=== PATIENT | female | born 1970 | race Caucasian/White ===

== ENCOUNTER 2019-09-20 20:48 | Emergency (ER) | payer OTHER ==
[2019-09-20 21:02] VITALS: BP 124/68; PULSE 87; TEMP 98.2; BMI 33.4
[2019-09-20] MEDS ORDERED: FAMOTIDINE 20 MG/50 ML IVPB 20 MG/50 ML MG IVPB ONE ×2 (21:34→21:59)
[2019-09-20] MEDS ORDERED: SODIUM CHLORIDE 1,000 ML IV STA (21:34)
--- NOTE | 2019-09-20 21:34 | PDOC ---
Rapid Medical Evaluation Chief Complaint: Nausea/Vomiting Medical Evaluation: Allergies Allergy/AdvReac Type Severity Reaction Status Date / Time No Known Allergies Allergy Verified 09/20/19 21:02 Vital Signs Temp Pulse Resp BP Pulse Ox 98.2 F 87 18 124/68 98 09/20/19 20:58 09/20/19 20:58 09/20/19 20:58 09/20/19 20:58 09/20/19 20:58 09/20/19 21:32 Pt is a 49-year-old female with 5 episodes of vomiting and 6 episodes of diarrhea today. She has left-sided abdominal pain. She continues to have nausea. She denies any blood in her vomitus or stool. Brief exam: S1S2, lungs clear, Left sided abdominal tenderness to palpation Orders: labs and CTAP Pt to go to the main ED for further evaluation. Discharge Disposition - Diagnosis Abdominal pain Qualifiers: Abdominal location: left lower quadrant Qualified Code(s): R10.32 - Left lower quadrant pain - Referrals Referrals: Arnie Ibarra MD [Primary Care Provider] - - Patient Instructions - Post Discharge Activity
[2019-09-20] MEDS ORDERED: ONDANSETRON 4 MG/2 ML VIAL IVPUSH ONE (21:35)
[2019-09-20] MEDS ORDERED: ONDANSETRON 4 MG/2 ML VIAL ONE (21:59)
[2019-09-20 22:35] LABS: BASO % 0.3 % (0-2.0); HEMATOCRIT 41.7 % (32.4-45.2); HEMOGLOBIN 13.7 GM/dL (10.7-15.3); LYMPH % 7.4 % (8-40); MCH 28.6 pg (25.7-33.7); MCHC 32.8 g/dl (32.0-36.0); MEAN PLT VOLUME 10.2 fl (7.5-11.1); MONO % 4.2 % (3.8-10.2); NEUT % 88.1 % (42.8-82.8); PLATELET COUNT 251 K/MM3 (134-434); RBC 4.79 M/mm3 (3.60-5.2); RDW 15.6 % (11.6-15.6)
--- NOTE | 2019-09-20 22:35 | PDOC ---
History of Present Illness - General Chief Complaint: Nausea/Vomiting Stated Complaint: VOMITING History Source: Patient Exam Limitations: No Limitations - History of Present Illness Initial Comments: 09/20/19 22:28 Patient is a 49-year-old female with history of arthritis here with complaints of abdominal pain mostly on the left side, nausea vomiting and diarrhea. Patient states her symptoms started today and has had several episodes of vomiting. Describes her pain as a crampy type mostly on the left side, which is intermittent, at the maximum 10/10. She denies any fever, chills, dysuria. No prior episode of this type of pain. Has never had a colonoscopy. PMD: Dr. Sanchez PMHX: As above PSOCHX: neg etoh, drug, cig ALL: NKDA GENERAL/CONSTITUTIONAL: [No fever or chills. No weakness. No weight change.] HEAD, EYES, EARS, NOSE AND THROAT: [No change in vision. No ear pain or discharge. No sore throat.] CARDIOVASCULAR: [No chest pain or shortness of breath.] RESPIRATORY: [No cough, wheezing, or hemoptysis.] GASTROINTESTINAL: [(+) nausea, vomiting, diarrhea (-) constipation. No rectal bleeding.] GENITOURINARY: [No dysuria, frequency, or change in urination.] MUSCULOSKELETAL: [No joint or muscle swelling or pain. No neck or back pain.] SKIN AND BREASTS: [No rash or easy bruising.] NEUROLOGIC: [No headache, vertigo, loss of consciousness, or loss of sensation.] PSYCHIATRIC: [No depression or anxiety.] ENDOCRINE: [No increased thirst. No abnormal weight change.] HEMATOLOGIC/LYMPHATIC: [No anemia, easy bleeding, or history of blood clots.] ALLERGIC/IMMUNOLOGIC: [No hives or skin allergy. No latex allergy.] GENERAL: [The patient is awake, alert, and fully oriented, in mild distress.] HEAD: [Normal with no signs of trauma.] EYES: [Pupils equal, round and reactive to light, extraocular movements intact, sclera anicteric, conjunctiva clear.] ENT: [Ears normal, nares patent, oropharynx clear without exudates. Moist mucous membranes.] NECK: [Normal range of motion, supple without lymphadenopathy, JVD, or masses.] LUNGS: [Breath sounds equal, clear to auscultation bilaterally. No wheezes, and no crackles.] HEART: [Regular rate and rhythm, normal S1 and S2 without murmur, rub.] ABDOMEN: [Soft, (+) tenderness left LLQ, normoactive bowel sounds. No guarding , no rebound. No masses.] EXTREMITIES: [Normal range of motion, no edema. No clubbing or cyanosis. No cords, erythema, or tenderness.] NEUROLOGICAL: [Cranial nerves II through XII grossly intact. Normal speech, normal gait.] PSYCH: [Normal mood, normal affect.] SKIN: [Warm, Dry, normal turgor, no rashes or lesions noted.] Past History - Past Medical History Allergies/Adverse Reactions: Allergies Allergy/AdvReac Type Severity Reaction Status Date / Time No Known Allergies Allergy Verified 09/20/19 21:02 - Psycho Social/Smoking Cessation Hx Smoking History: Never smoked Hx Alcohol Use: No Drug/Substance Use Hx: No *Physical Exam - Vital Signs Last Vital Signs Temp Pulse Resp BP Pulse Ox 98.2 F 87 18 124/68 98 09/20/19 20:58 09/20/19 20:58 09/20/19 20:58 09/20/19 20:58 09/20/19 20:58 ED Treatment Course - LABORATORY CBC & Chemistry Diagram: 09/20/19 22:20 09/20/19 22:20 - Medications Given in the ED: ED Medications Discontinued Medications Generic Name Dose Route Start Last Admin Trade Name Freq PRN Reason Stop Dose Admin Famotidine/Sodium Chloride 20 mg in 50 mls @ 100 mls/hr 09/20/19 21:34 22:26 Pepcid 20 Mg Premixed Ivpb - IVPB 09/20/19 22:03 100 mls/hr ONCE ONE Administration Ondansetron HCl 4 mg 09/20/19 21:35 09/20/19 22:26 Zofran Injection IVPUSH 09/20/19 21:36 4 mg ONCE ONE Administration Medical Decision Making - Medical Decision Making 09/20/19 22:28 Patient is a 49-year-old female with history of arthritis here with complaints of abdominal pain mostly on the left side, nausea vomiting and diarrhea. Patient states her symptoms started today and has had several episodes of vomiting. Describes her pain as a crampy type mostly on the left side, which is intermittent, at the maximum 10/10. She denies any fever, chills, dysuria. No prior episode of this type of pain. Has never had a colonoscopy. DDX: renal colic, diverticulitis, Patient declines pain meds currently labs, CT A/P reassess Patient requesting something for pain will give Toradol 30 mg IV. 09/21/19 00:43 Patient Full Name: JESSICA JARQUIN Patient Accession No: [id number] Patient : 1970 Reason for Exam: LLQ PAIN Referring Physician: VAIBHAV PAN Patient Name: BRITTON LOPEZ THIS IS A PRELIMINARY REPORT FROM [facility] DATE OF SERVICE: 2019-09-20 23:10:14 IMAGES: [id number] EXAM: ABDOMEN \T\ PELVIS CT WITH CONTR HISTORY: Left lower quadrant pain. COMPARISON: None. FINDINGS: Calcified nodule in the right lung base. Dependent atelectasis. Heart normal in size pericardial effusion. The liver, spleen, pancreas, adrenal glands, and kidneys are without acute abnormality. Urinary bladder minimally distended, limiting evaluation. Pelvic reproductive organs unremarkable. No free fluid in the pelvis. Seen just left of the rectum is a round fluid density lesion measuring 2.4 x 2.6 cm, closely approximating the left sacrum. No evidence for small bowel obstruction or perforation. Loop of small bowel seen the left lower quadrant which demonstrates mild ill-defined wall and adjacent inflammatory change in the subcutaneous fat, seen on image 55 series [id number] and image 89 series 3. Hyperdense material seen within the distal small bowel intraluminally may represent enteric contents.Terminal ileum and appendix normal. No significant inflammatory changes of the colon. Vascular structures within normal limits. No acute osseous abnormalities. IMPRESSION: 1. Mildly inflamed loop of nondilated small bowel in the left lower quadrant which may represent enteritis. 2. Cystic lesion seen in the left pelvis, closely approximating the sacrum. Findings are nonspecific, though may represent a large perineural cyst. Further evaluation with routine MRI of the lumbar spine and sacrum recommended. One or more of the following dose reduction techniques were used: automated exposure control, adjustment of the mA and/or kV according to patient size, use of iterative reconstructive technique. THIS DOCUMENT HAS BEEN ELECTRONICALLY SIGNED Mary Beth Rice MD 09/21/2019 00:25 RICKY Reyes. Please call [facility] [employer] Technician [phone] ([phone]) with questions. INTERPRETING RADIOLOGIST: Mary Beth Rice MD Electronically Signed: Sep 21, 2019 12:27AM EST I discussed the physical exam findings, ancillary test results and final diagnoses with the patient. I answered all of the patient's questions. The patient was satisfied with the care received and felt comfortable with the discharge plan and treatment plan. The Patient agrees to follow up with the primary care physician within 24-72 hours. Will instruct to follow-up with GI Discharge - Discharge Information Problems reviewed: Yes Clinical Impression/Diagnosis: Enteritis Abdominal pain Qualifiers: Abdominal location: left lower quadrant Qualified Code(s): R10.32 - Left lower quadrant pain Condition: Stable Disposition: HOME - Follow up/Referral Referrals: Arnie Ibarra MD [Primary Care Provider] - Agnes Bowser DO [Staff Physician] - - Patient Discharge Instructions Patient Printed Discharge Instructions: DI for Abdominal Pain-Adult, DI for Enteritis Additional Instructions: Your Discharge Instructions: You must call primary care physician within 24 hours to arrange follow-up. Return to the Emergency Department with any new, persistent or worsening symptoms, for fever, chills, SOB, dizziness or any other concerning changes that may occur. Continue Tylenol and Motrin for pain. You must follow-up with gastroenterology, call for an appointment. Suggest you follow a brat diet for the next few days, (bread, rice, toast, applesauce). Avoid dairy products, caffeine, alcohol, nicotine and fatty or highly seasoned food for the next few days. - Post Discharge Activity
[2019-09-20 22:38] LABS: URINE APPEARANCE CLOUDY; URINE BILIRUBIN NEGATIVE (NEGATIVE); URINE COLOR YELLOW; URINE GLUCOSE (UA) NEGATIVE (NEGATIVE); URINE KETONE 1+ (NEGATIVE); URINE LEUK ESTERASE NEGATIVE (NEGATIVE); URINE NITRITE NEGATIVE (NEGATIVE); URINE PROTEIN TRACE (NEGATIVE); URINE UROBILINOGEN 0.2 mg/dL (0.2-1.0)
[2019-09-20 23:02] LABS: ALBUMIN 3.9 g/dl (3.4-5.0); BLOOD UREA NITROGEN 20.8 mg/dL (7-18); CALCIUM 8.4 mg/dL (8.5-10.1); CREATININE 0.6 mg/dL (0.55-1.3); TOT PROT 7.4 g/dl (6.4-8.2)
[2019-09-20] MEDS ORDERED: KETOROLAC TROMETHAMINE 30 MG/1 ML VIAL IVPUSH ONE (23:37)
[2019-09-20] MEDS ORDERED: KETOROLAC TROMETHAMINE 30 MG/1 ML VIAL ONE (23:51)
== END 2019-09-21 01:14 | disposition home or self-care (01) ==
LOC: JER 20:48 → JERFT 20:48 → JER 09-21 01:14
PROC: 3E033GC Introduction of Other Therapeutic Substance into Peripheral Vein, Percutaneous Approach (ICD-10-PCS; principal; 2019-09-20)
PROC: 3E033GC Introduction of Other Therapeutic Substance into Peripheral Vein, Percutaneous Approach (ICD-10-PCS; 2019-09-20)
PROC: 3E0333Z Introduction of Anti-inflammatory into Peripheral Vein, Percutaneous Approach (ICD-10-PCS; 2019-09-20)
DX: K52.9 Noninfective gastroenteritis and colitis, unspecified (principal); M12.9 Arthropathy, unspecified
CPT/HCPCS: 36415; 74177-TC; 80053; 81003; 83690; 84703; 85025; 87086; 96365; 96375; 99285-25; J7030; Q9967

== ENCOUNTER 2019-09-26 10:35 | Emergency (ER) | payer OTHER ==
[2019-09-26 10:45] VITALS: BP 127/74; PULSE 78; BMI 31.3
[2019-09-26] MEDS ORDERED: FAMOTIDINE 20 MG TABLET ONE (11:00)
[2019-09-26] MEDS ORDERED: DEXAMETHASONE SOD PHOSPHATE 10 MG/1 ML VIAL ONE (11:00)
[2019-09-26] MEDS ORDERED: diphenhydrAMINE HCL 25 MG CAPSULE (FP) PO ONE (11:01)
[2019-09-26] MEDS ORDERED: diphenhydrAMINE HCL 50 MG CAPSULE PO ONE (11:02)
[2019-09-26] MEDS ORDERED: FAMOTIDINE 20 MG TABLET PO ONE (11:02)
[2019-09-26] MEDS ORDERED: DEXAMETHASONE LIQUID 0.5 MG/5 ML PO ONE (11:02)
--- NOTE | 2019-09-26 11:07 | PDOC ---
History of Present Illness - General Chief Complaint: Allergic Reaction Stated Complaint: ALLERGIC REACTION Time Seen by Provider: 09/26/19 10:47 History Source: Patient Exam Limitations: No Limitations Past History - Travel Traveled outside of the country in the last 30 days: No Close contact w/someone who was outside of country & ill: No - Past Medical History Allergies/Adverse Reactions: Allergies Allergy/AdvReac Type Severity Reaction Status Date / Time No Known Allergies Allergy Verified 09/26/19 10:40 Home Medications: Ambulatory Orders Diphenhydramine HCl [Benadryl -] 25 mg PO Q8H #21 capsule 09/26/19 Famotidine [Pepcid -] 20 mg PO BID #14 tablet 09/26/19 Methylprednisolone [Medrol -] 4 mg PO ASDIR #21 tablet 09/26/19 - Psycho Social/Smoking Cessation Hx Smoking History: Never smoked Hx Alcohol Use: No Drug/Substance Use Hx: No Review of Systems - Review of Systems Able to Perform ROS?: Yes Comments:: 09/26/19 11:01 CONSTITUTIONAL: Absent: fever, chills, diaphoresis, generalized weakness, malaise, loss of appetite HEENT: Absent: rhinorrhea, nasal congestion, throat pain, throat swelling, difficulty swallowing, mouth swelling, ear pain, eye pain, visual Changes RESPIRATORY: Absent: cough, shortness of breath, dyspnea with exertion, orthopnea, wheezing, stridor, hemoptysis GASTROINTESTINAL: Absent: abdominal pain, abdominal distension, nausea, vomiting, diarrhea, constipation, melena, hematochezia MUSCULOSKELETAL: Absent: myalgia, arthralgia, joint swelling SKIN: Present: rash Absent: itching, pallor NEUROLOGIC: Absent: headache, focal weakness or paresthesias, dizziness, unsteady gait, seizure, mental status changes, bladder or bowel incontinence PSYCHIATRIC: Absent: anxiety, depression, suicidal or homicidal ideation, hallucinations. Is the patient limited Georgian proficient: No *Physical Exam - Vital Signs Last Vital Signs Temp Pulse Resp BP Pulse Ox 78 16 127/74 100 09/26/19 10:41 09/26/19 10:41 09/26/19 10:41 09/26/19 10:41 - Physical Exam 09/26/19 11:01 GENERAL: The patient is awake, alert, and fully oriented, in no acute distress. HEAD: Normal with no signs of trauma. EYES: Pupils equal, round and reactive to light, extraocular movements intact, sclera anicteric, conjunctiva clear. EXTREMITIES: Normal range of motion, no edema. NEUROLOGICAL: Normal speech, normal gait. PSYCH: Normal mood, normal affect. SKIN: Pruritic, erythematous blanching rash with wheals to the face,, bilateral arms, back, chest and abdomen. Warm, Dry, normal turgor, no lesions noted. Medical Decision Making - Medical Decision Making 09/26/19 11:04 The patient is a 49 y/o F with no PMH presents to the ER with a rash to her face , chest, arms and abdomen. She states the rash started at 3 AM. She notices that she was itchy before going to bed last night. She does not have any allergies that she knows of. Denies fevers, chills, difficulty breathing, shortness of breath, nausea and vomiting. A/P: Hives On exam patient with a pruritic, erythematous and blanching wheal-like rash to the face, chest, arms and abdomen. Lungs are clear to auscultation bilateral without wheezes rales or rhonchi. There is no edema to the posterior pharynx. Consistent with an allergic reaction We will treat with steroids, Benadryl and Pepcid in the ER. Prescription sent to patient pharmacy for all 3. Will refer to allergy. Discharge home I discussed the physical exam findings, ancillary test results and final diagnoses with the patient. I answered all of the patient's questions. The patient was satisfied with the care received and felt comfortable with the discharge plan and treatment plan. The Patient agrees to follow up with the primary care physician/specialist within 24-72 hours. Return precautions were given. Discharge - Discharge Information Problems reviewed: Yes Clinical Impression/Diagnosis: Allergic reaction Qualifiers: Encounter type: initial encounter Qualified Code(s): T78.40XA - Allergy, unspecified, initial encounter Condition: Stable Disposition: HOME - Admission No - Follow up/Referral Referrals: Arnie Ibarra MD [Primary Care Provider] - - Patient Discharge Instructions Patient Printed Discharge Instructions: DI for Adverse Drug Reaction -- Allergic Additional Instructions: You were evaluated for your rash today. It is most likely an allergy. Please start taking the steroids, Medrol Dosepak, tomorrow. You received your first dose in the ER today. Please take the Benadryl every 8 hours to help with the rash. You may take the Pepcid twice a day also to help with the rash. You may use cool showers to help with the itching and chamomile lotion. Please follow-up with allergy. A referral has been given to you. Follow-up in 1 week. Return to the ER for difficulty breathing, shortness of breath, wheezing, swelling in your throat, or if you have any changes in your symptoms. Te evaluaron para tu sarpullido magaliey. Lo ms probable es que sea anabela alergia. Por favor empezar a tano los esteroides, Medrol Dosepak, maana. Hoy recibi montesinos primera dosis en Urgencias. Por favor, tome el Benadryl cada 8 horas para ayudar con la erupcin cutnea. Usted puede tano el Pepcid dos veces al da tambin para ayudar con la erupcin cutnea. Usted puede usar duchas frescas para ayudar con la picazn y la locin de manzanilla. Por favor, garo un seguimiento de la alergia. Se le gottlieb dado anabela referencia. Seguimiento en 1 semana. Regrese a la urgencia para dificultad para respirar, dificultad para respirar, sibilancias, hinchazn en la garganta o si tiene algn cambio en los sntomas. - Post Discharge Activity Work/Back to School Note: Back to Work
== END 2019-09-26 11:15 | disposition home or self-care (01) ==
LOC: JERFT 10:35
DX: L50.0 Allergic urticaria (principal); T78.40XA Allergy, unspecified, initial encounter; X58.XXXA Exposure to other specified factors, initial encounter
CPT/HCPCS: 99283-25

== ENCOUNTER 2022-01-16 04:47 | Day surgery (SDC) | payer OTHER ==
[2022-01-16 09:47] VITALS: BMI 34.2
[2022-01-16 11:25] VITALS: TEMP 98
[2022-01-16 12:18] VITALS: BP 140/75; PULSE 84
== END 2022-01-16 12:22 | disposition home or self-care (01) ==
LOC: JASU-ENDO 04:47
PROVIDERS: ATTEND Internal Medicine Gastroenterology
PROC: 0DBF8ZX Excision of Right Large Intestine, Via Natural or Artificial Opening Endoscopic, Diagnostic (ICD-10-PCS; principal; 2022-01-16 10:15)
DX: Z12.11 Encounter for screening for malignant neoplasm of colon (principal); D12.6 Benign neoplasm of colon, unspecified; K64.8 Other hemorrhoids
CPT/HCPCS: 88305-TC

== ENCOUNTER 2022-02-14 10:42 | Emergency (ER) | payer OTHER ==
[2022-02-14 10:47] VITALS: BP 142/70; PULSE 90; TEMP 97.8; BMI 27.4
== END 2022-02-14 11:30 | disposition home or self-care (01) ==
LOC: JERFT 10:42
DX: M54.50 Low back pain, unspecified (principal)
CPT/HCPCS: 99283-25

== ENCOUNTER 2023-06-19 21:42 | Emergency (ER) | payer SELFPAY ==
[2023-06-19 21:52] VITALS: BMI 64.5
[2023-06-19] MEDS ORDERED: predniSONE 20 MG TABLET (UD) PO ONE (23:16)
[2023-06-19] MEDS ORDERED: guaiFENesin/D-METHORPHAN HB 10 ML UNIT-DOSE CUPS PO ONE (23:16)
[2023-06-19] MEDS ORDERED: guaiFENesin/D-METHORPHAN HB 10 ML UNIT-DOSE CUPS ONE (23:24)
[2023-06-19] MEDS ORDERED: predniSONE 20 MG TABLET (UD) ONE (23:25)
[2023-06-19 23:34] VITALS: BP 118/61; PULSE 88; RESP 16; TEMP 98.8
== END 2023-06-19 23:34 | disposition home or self-care (01) ==
LOC: JERFT 21:42 → JER 21:42 → JERFT 23:34
DX: R05.9 Cough, unspecified (principal); R12 Heartburn; G47.9 Sleep disorder, unspecified; J40 Bronchitis, not specified as acute or chronic; Z20.822 Contact with and (suspected) exposure to COVID-19
CPT/HCPCS: 0241U-QW; 71046-TC-FY; 99284-25